=== PATIENT | female | born 1960 | race Caucasian/White ===

== ENCOUNTER 2021-03-03 12:25 | Observation (INO) | payer OTHER, SELFPAY ==
[2021-03-03] VITALS (11 sets, daily range): BP systolic 155–232; BP diastolic 74–101; PULSE 53–58; RESP 14–24; TEMP 36.4–36.9; O2SAT 97–99; BMI 36.8
[2021-03-03] MEDS: SODIUM CHLORIDE 0.9% 1,000 ML 1000 ML IV ×2 (12:57→15:00)
[2021-03-03] MEDS: ONDANSETRON 4 MG/2 ML INJ IV (12:57)
[2021-03-03 13:00] LABS: Add Manual Diff / Slide Review NO; Basophils Absolute Auto 100 /uL (0-100); Eosinophils Absolute Auto 0 /uL (0-450); Eosinophils Percent Auto 0.1 % (2-4); Hematocrit 40.9 % (36-46); Hemoglobin 13.6 g/dL (12.0-16.0); Lymphocytes Absolute Auto 1600 /uL (1100-4500); Lymphocytes Percent Auto 13.3 % (25-40); Mean Corpuscular HGB Conc 33.3 % (30-36); Mean Corpuscular Hemoglobin 29.6 PG (26-34); Mean Corpuscular Volume 88.8 fL (80-100); Monocytes Absolute Auto 700 /uL (0-900); Neutrophils Absolute Auto 9400 /uL (1500-7000); Neutrophils Percent Auto 79.6 % (50-75); Platelet Count 289 X10^3/uL (150-400); Red Cell Distribution Width 12.5 % (11.6-14.8); White Blood Cell Count 11.8 X10^3/uL (4.5-11.0)
[2021-03-03 13:07] LABS: Alanine Aminotransferase 346 IU/L (<35); Albumin 4.2 g/dL (3.5-5.0); Albumin Globulin Ratio 1.4 (1.0-2.8); Alkaline Phosphatase 149 U/L (38-126); Aspartate Aminotransferase 474 IU/L (14-36); Blood Urea Nitrogen 18 mg/dL (7-17); Calcium 9.8 mg/dL (8.4-10.2); Carbon Dioxide 28 mmol/L (22-32); Chloride 106 mmol/L (98-107); Estimated Glomerular Filt Rate > 60.0 mL/min (>60); Globulin 2.9 g/dL (1.7-4.1); Glucose 115 mg/dL (70-100); HEMOLYSIS < 15 (0-50); Lipase 68 U/L (23-300); Potassium 3.4 mmol/L (3.4-5.1); Sodium 140 mmol/L (137-145); Total Protein 7.1 g/dL (6.3-8.2)
--- NOTE | 2021-03-03 14:27 | DI.US.S_ITS ---
PROCEDURE: US ABDOMEN COMPLETE INDICATIONS: back/abd pain TECHNIQUE: Real-time scanning was performed of the abdominal and retroperitoneal organs, with image documentation. COMPARISON: None. FINDINGS: Liver: Liver is normal in size and homogeneous in echotexture. Liver measures 16.1 cm in length Gallbladder: Gallbladder sludge is present. No definite wall thickening. No pericholecystic fluid or sonographic Person sign. Biliary ducts: Distal common bile duct measures 11.6 mm, enlarged. There is intrahepatic bile duct dilatation of the ashtyn hepatis only. Pancreas: Visualized portions of the pancreas are sonographically normal. Spleen: Spleen is normal in size and homogeneous in echotexture. Kidneys: Kidneys are normal in size and echotexture. Right kidney measures 11.6 cm long; left kidney measures 12.6 cm long. No hydronephrosis or nephrolithiasis. No solid masses. There are parapelvic cysts bilaterally Aorta: Visualized aorta is normal in caliber at less than 3 cm. Iliacs: Proximal common iliac arteries are normal in caliber at less than 2.5 cm. IVC: Intrahepatic inferior vena cava is patent. Miscellaneous: No free abdominal fluid. IMPRESSION: Gallbladder sludge. No sonographically visible calculi identified. However there is mild intrahepatic and and extrahepatic bile duct dilatation. Please correlate clinically and with LFTs. If necessary, MRCP could be considered. Dictated by: Mark Baez M.D. on 03/03/2021 at 16:01 Approved by: Mark Baez M.D. on 03/03/2021 at 16:04
[2021-03-03 14:48] LABS: Creatine Kinase 72 U/L (30-135)
[2021-03-03] MEDS: KETOROLAC 30 MG/ML VIAL 15 MG IV (14:57)
[2021-03-03 15:01] LABS: Troponin I < 0.012 ng/mL (0.01-0.034)
--- NOTE | 2021-03-03 15:21 | ED_ITS ---
HPI - Abdominal Pain General Chief Complaint: Abdominal Pain Stated Complaint: [facility] Time Seen by Provider: 03/03/21 13:38 Source: patient Mode of arrival: Ambulatory Limitations: no limitations History of Present Illness HPI narrative: This is a 60-year-old female comes emergency department complaint of acute onset of epigastric pain radiating to her right side beginning this m orning. Patient states it had continued and brought her ultimately here. Patient denies any fevers or chills. Had nausea and some vomiting. No active vomiting currently. No diarrhea. She has had normal bowel movements. No black or bloody stools. She denies any chest pain or shortness of breath. No syncope. Patient has not any swelling in her extremities. Patient states she does not follow a regular primary care. She takes ibuprofen regularly but no other daily medications. She denies any cholecystectomy. She states she has had repair of a broken ankle. She smokes a half pack per day. No alcohol, no illicit. No allergies to medications. Related Data Home Medications Medication Instructions Recorded Confirmed ibuprofen 200 mg capsule 800 mg PO Q8H PRN 03/03/21 03/03/21 Allergies Allergy/AdvReac Type Severity Reaction Status Date / Time No Known Drug Allergies Allergy Verified 03/03/21 12:41 Review of Systems Review of Systems ROS Unobtainable: All systems reviewed & are unremarkable except as noted in HPI and below Patient History Social History Smoking Status: Current every day smoker Smoking Status: Current every day smoker alcohol intake frequency: holidays/special occasions only Substance Use Type: does not use Exam Narrative Exam Narrative: GENERAL: Alert and oriented x three, female in mild distress. HEENT: Head normocephalic, atraumatic, EOMI, pupils reactive, face symmetric, moist mucous membranes NECK: Supple, full range of motion CARDIOVASCULAR: Regular rate and rhythm without murmurs, rubs or gallops. RESPIRATORY: Breath sounds equal bilaterally, no wheezes rales or rhonchi. ABDOMEN: Soft, right upper quadrant tenderness, patient is more tender in the epigastric region. Normoactive bowel sounds all 4 quadrants. No guarding or rebound, rigidity, no mass, no pulsatile mass or bruit : No CVA tenderness EXTREMITIES: Normal range of motion, no clubbing or edema. Neurovascularly intact NEUROLOGICAL: Cranial nerves II through XII grossly intact. Moving all extremities SKIN: Warm, dry, no petechiae, no rashes or lesions. Initial Vital Signs Initial Vital Signs: Vital Signs Temperature 98.5 F 03/03/21 12:36 Pulse Rate 58 L 03/03/21 12:36 Respiratory Rate 14 03/03/21 12:36 Blood Pressure 232/99 H 03/03/21 12:36 Pulse Oximetry 99 03/03/21 12:36 Course Orders Ordered: ED Orders 03/03/21 12:42 EKG-12 Lead Stat 03/03/21 12:52 Complete Blood Count AUTO DIFF Stat Comprehensive Metabolic Panel Stat Hepatic (Liver) Panel Stat Lipase Stat Troponin & CK Cardiac Panel Stat 03/03/21 14:27 US abdomen complete Stat 03/03/21 15:02 COVID19 - ADMIT (LIMOUSINE DRIVER swab/PCR) Stat 03/03/21 16:09 MR abdomen wo con Stat Discontinued Medications Sodium Chloride (Normal Saline 0.9%) 1,000 mls @ 1,000 mls/hr IV BOLUS ONE Stop: 03/03/21 13:41 Last Infusion: 03/03/21 14:24 Dose: 0 mls/hr Documented by: CTR.GERSON Admin: 03/03/21 12:57 Dose: 1,000 mls/hr Documented by: KOREY Sodium Chloride (Normal Saline 0.9%) 1,000 mls @ 1,000 mls/hr IV BOLUS ONE Stop: 03/03/21 15:27 Last Infusion: 03/03/21 16:05 Dose: 0 mls/hr Documented by: CTR.GERSON Admin: 03/03/21 15:00 Dose: 1,000 mls/hr Documented by: CTR.GERSON Piperacillin Sod/Tazobactam (Sod 4.5 gm/ Sodium Chloride) 100 mls @ 200 mls/hr IV NOW ONE Stop: 03/03/21 20:03 Last Admin: 03/03/21 20:24 Dose: Not Given Documented by: MALATHI Piperacillin Sod/Tazobactam (Sod 4.5 gm/ Sodium Chloride) 100 mls @ 200 mls/hr IV NOW ONE Stop: 03/03/21 20:30 Ketorolac Tromethamine (Ketorolac 30 Mg/Ml Vial) 15 mg IV NOW ONE Stop: 03/03/21 14:28 Last Admin: 03/03/21 14:57 Dose: 15 mg Documented by: CTRJONNATHAN Lorazepam (Lorazepam 2 Mg/Ml Inj) 0.5 mg IV NOW ONE Stop: 03/03/21 18:16 Last Admin: 03/03/21 19:18 Dose: 0.25 mg Documented by: CTR.GERSON Ondansetron HCl (Ondansetron 4 Mg/2 Ml Inj) 4 mg IV NOW ONE Stop: 03/03/21 12:43 Last Admin: 03/03/21 12:57 Dose: 4 mg Documented by: KOREY Consultations Consultation #1: Dr. Arteaga, this patient is unlikely to be surgical. Reviewed labs, ultrasound and MRCP findings. Plan to cover with antibiotics, hepatitis panel and admission under Medicine. Consultation #2: ZAINAB Her, accepts for inpatient admission. Discussed surgical recommendations. Vital Signs Vital signs: Vital Signs - 8 hr 03/03/21 17:00 Pulse Rate 54 L Respiratory Rate 20 Blood Pressure 171/74 H Pulse Oximetry 98 MDM - Abdominal Pain Lab Data Result diagrams: 03/03/21 12:52 03/03/21 12:52 Labs: Lab Results 03/03/21 03/03/21 03/03/21 Range/Units 12:52 12:52 12:52 WBC 11.8 H (4.5-11.0) X10^3/uL RBC 4.60 (4.0-5.2) X10^6/uL Hgb 13.6 (12.0-16.0) g/dL Hct 40.9 (36-46) % MCV 88.8 (80-100) fL MCH 29.6 (26-34) PG MCHC 33.3 (30-36) % RDW 12.5 (11.6-14.8) % Plt Count 289 (150-400) X10^3/uL Neut % (Auto) 79.6 H (50-75) % Lymph % (Auto) 13.3 L (25-40) % Lucas % (Auto) 6.0 (3-14) % Eos % (Auto) 0.1 L (2-4) % Baso % (Auto) 1.0 (0-2) % Neut # (Auto) 9400 H (5281-2495) /uL Lymph # (Auto) 1600 (6945-4119) /uL [place] # (Auto) 700 (0-900) /uL Eos # (Auto) 0 (0-450) /uL Baso # (Auto) 100 (0-100) /uL Sodium 140 (137-145) mmol/L Potassium 3.4 (3.4-5.1) mmol/L Chloride 106 (98-107) mmol/L Carbon Dioxide 28 (22-32) mmol/L BUN 18 H (7-17) mg/dL Creatinine 0.60 (0.52-1.04) mg/dL Estimated GFR > 60.0 (>60) mL/min BUN/Creatinine Ratio 30.0 H (6-22) Glucose 115 H (70-100) mg/dL Calcium 9.8 (8.4-10.2) mg/dL Total Bilirubin 2.0 H (0.2-1.3) mg/dL Conjugated Bilirubin (0.0-0.3) md/dL Unconjugated Bilirubin (0.0-1.1) mg/dL AST 474 H (14-36) IU/L ALT 346 H (<35) IU/L Alkaline Phosphatase 149 H (38-126) U/L Total Creatine Kinase 72 (30-135) U/L CK-MB (CK-2) TNP CK-MB (CK-2) Rel Index TNP Troponin I < 0.012 (0.01-0.034) ng/mL Total Protein 7.1 (6.3-8.2) g/dL Albumin 4.2 (3.5-5.0) g/dL Globulin 2.9 (1.7-4.1) g/dL Albumin/Globulin Ratio 1.4 (1.0-2.8) Lipase 68 (23-300) U/L SARS-CoV-2 (PCR) (Negative) 03/03/21 03/03/21 Range/Units 12:52 15:02 WBC (4.5-11.0) X10^3/uL RBC (4.0-5.2) X10^6/uL Hgb (12.0-16.0) g/dL Hct (36-46) % MCV (80-100) fL MCH (26-34) PG MCHC (30-36) % RDW (11.6-14.8) % Plt Count (150-400) X10^3/uL Neut % (Auto) (50-75) % Lymph % (Auto) (25-40) % Lucas % (Auto) (3-14) % Eos % (Auto) (2-4) % Baso % (Auto) (0-2) % Neut # (Auto) (2372-3920) /uL Lymph # (Auto) (3786-1251) /uL Lucas # (Auto) (0-900) /uL Eos # (Auto) (0-450) /uL Baso # (Auto) (0-100) /uL Sodium (137-145) mmol/L Potassium (3.4-5.1) mmol/L Chloride (98-107) mmol/L Carbon Dioxide (22-32) mmol/L BUN (7-17) mg/dL Creatinine (0.52-1.04) mg/dL Estimated GFR (>60) mL/min BUN/Creatinine Ratio (6-22) Glucose (70-100) mg/dL Calcium (8.4-10.2) mg/dL Total Bilirubin 2.0 H (0.2-1.3) mg/dL Conjugated Bilirubin 0.2 (0.0-0.3) md/dL Unconjugated Bilirubin 0.7 (0.0-1.1) mg/dL AST 476 H (14-36) IU/L ALT 344 H (<35) IU/L Alkaline Phosphatase 151 H (38-126) U/L Total Creatine Kinase (30-135) U/L CK-MB (CK-2) CK-MB (CK-2) Rel Index Troponin I (0.01-0.034) ng/mL Total Protein 7.0 (6.3-8.2) g/dL Albumin 4.2 (3.5-5.0) g/dL Globulin 2.8 (1.7-4.1) g/dL Albumin/Globulin Ratio 1.5 (1.0-2.8) Lipase (23-300) U/L SARS-CoV-2 (PCR) Negative (Negative) Point of care testing: Urine Dip Bedside Urine Glucose Negative Bedside Urine Bilirubin - Negative Bedside Urine Ketone - Negative Urine Specific [place] 1.015 Bedside Urine Occult Blood - Negative Bedside Urine pH 6.5 Bedside Urine Protein - Negative Bedside Urine Urobilinogen - Negative Bedside Urine Nitrite - Negative Bedside Urine Leukocytes - Negative Esterase Imaging Data US - abdomen: Radiologist's Impression: [address] [id number] ReportSigned Patient: Lissett Clifford AMR#: [id number]: 2Acct:[id number]/Sex: 60 / FDate of Service: 03/03/21Loc: EDAccession Number: [id number] Procedure: US abdomen complete Ordering Provider: Mary France D.O. PROCEDURE: US ABDOMEN COMPLETE INDICATIONS: back/abd pain TECHNIQUE: Real-time scanning was performed of the abdominal and retroperitoneal organs, with image documentation. COMPARISON: None. FINDINGS: Liver: Liver is normal in size and homogeneous in echotexture. Liver measures 16.1 cm in length Gallbladder: Gallbladder sludge is present. No definite wall thickening. No pericholecystic fluid or sonographic Person sign. Biliary ducts: Distal common bile duct measures 11.6 mm, enlarged. There is intrahepatic bile duct dilatation of the ashtyn hepatis only. Pancreas: Visualized portions of the pancreas are sonographically normal. Spleen: Spleen is normal in size and homogeneous in echotexture. Kidneys: Kidneys are normal in size and echotexture. Right kidney measures 11.6 cm long; left kidney measures 12.6 cm long. No hydronephrosis or nephrolithiasis. No solid masses. There are parapelvic cysts bilaterally Aorta: Visualized aorta is normal in caliber at less than 3 cm. Iliacs: Proximal common iliac arteries are normal in caliber at less than 2.5 cm. IVC: Intrahepatic inferior vena cava is patent. Miscellaneous: No free abdominal fluid. IMPRESSION: Gallbladder sludge. No sonographically visible calculi identified. However there is mild intrahepatic and and extrahepatic bile duct dilatation. Please correlate clinically and with LFTs. If necessary, MRCP could be considered. Dictated by: Mark Baez M.D. on 03/03/2021 at 16:01 Approved by: Mark Baez M.D. on 03/03/2021 at 16:04 ECG Data Interpretation: Sinus bradycardia rate of 51 IN 176 QRS of 92 and QTC 401. Nonspecific change. No prior. MDM Narrative Medical decision making narrative: This is a 60-year-old female comes in with epigastric/right upper quadrant pain. Patient has mild to moderate tenderness after pain medication. Ultrasound does show sludge, there is no definite wall thickening, pericholecystic fluid or sonographic Person sign. Patient's majority of her pain is epigastric on exam. She has elevated bilirubin, LFTs within normal lipase. She has a mildly elevated white count. Negative troponin. EKG shows nonspecific change. Patient does not have a prior for comparison. Patient and pain was improved after pain medication. Patient's ultrasound findings did show what appears to be an enlarged common bile duct and were able to obtain MRCP. Patient did need Ativan for some claustrophobia. MRCP does not show obvious stone. Mild gallbladder wall thickening, cholelithiasis. No obstructing mass. Nonspecific periportal edema within the liver. Spoke with Dr. Arteaga with general surgery who recommends covering with IV antibiotics, admission to Medicine, hepatitis panel is ordered. At this time does not feel surgical and does not plan to take to OR currently. Discharge Plan Departure Patient Disposition: Admitted As Inpatient Clinical Impression: Hepatitis, Acalculous cholecystitis Admit Date/Time: 03/03/21 20:12 Admit Provider: Yudith Her
[2021-03-03 16:00] LABS: COVID19 - ADMIT (NP swab/PCR) Negative (Negative)
--- NOTE | 2021-03-03 16:09 | DI.MRI.S_ITS ---
PROCEDURE: MR ABDOMEN WO CON INDICATIONS: elevated lft's cbd dilated. epigastric pain. TECHNIQUE: Coronal HASTE through the abdomen, axial 2-D FLASH in- and [id number], and breath-hold T2 FSE with fat saturation through the biliary system and pancreas. Oblique coronal and axial thin-slice HASTE, radial thick-slab HASTE centered on the extrahepatic bile ducts. COMPARISON: , , US ABDOMEN COMPLETE, 03/03/2021, 14:24. FINDINGS: Image quality: There is motion artifact limiting evaluation. Pancreas and biliary system: The gallbladder is distended with wall thickening. No gallstones or pericholecystic fluid. The common hepatic duct is slightly dilated but the common bile duct is normal in caliber distally. No definite filling defects to suggest choledocholithiasis. No discrete obstructing mass visualized. Pancreatic duct is nondistended. Common bile duct Pancreas is normal in morphology, without peripancreatic edema or fluid collections. Other solid organs: Noncontrast evaluation of the liver demonstrates no discrete mass. There is mild periportal edema in the liver. Spleen is normal in size. No adrenal nodules. Kidneys demonstrate no hydronephrosis. There are multiple bilateral parapelvic renal cysts. Nodes and vessels: No retroperitoneal or mesenteric adenopathy by size criteria. Aorta and inferior vena cava are normal in size. Bowel and peritoneum: Visualized bowel loops are normal in caliber. No free fluid. Lung bases: No basal pleural effusions. Heart size is normal. Bones and soft tissues: No ventral hernias. Bone marrow is of normal overall signal. IMPRESSION: 1. Mild gallbladder wall thickening without evidence of cholelithiasis or pericholecystic fluid. The findings are nonspecific in the differential is broad but includes possible acalculous cholecystitis. Recommend correlation clinically. 2. Mild dilatation of the common hepatic duct without abnormal dilatation of the common bile duct. No discrete stones identified to suggest choledocholithiasis. No definite obstructing mass visualized in the absence of intravenous contrast. 3. Mild nonspecific periportal edema within the liver. Dictated by: Nathanael Jc M.D. on 03/03/2021 at 19:34 Approved by: Nathanael Jc M.D. on 03/03/2021 at 19:40
[2021-03-03] MEDS: LORazepam 2 MG/ML INJ 0.5 MG IV (19:18)
--- NOTE | 2021-03-03 20:32 | P.HP_ITS ---
History of Present Illness History of Present Illness Date Patient Seen: 03/03/21 Time Patient Seen: 20:32 Chief complaint: sent by [facility], omayra vannbaltazar since midnight Narrative: Patient is a 60-year-old female Lissett Clifford who presented to the ED with a chief complaint of acute onset of epigastric pain radiating to her right side beginning this morning. Patient states it had continued and brought her ultimately here. Patient denies any fevers or chills. Had nausea and some vomiting. No active vomiting currently. No diarrhea. She has had normal bowel movements. No black or bloody stools. She denies any chest pain or shortness of breath. No syncope. Patient has not any swelling in her extremities. Patient states she does not follow a regular primary care. She takes ibuprofen 800mg daily but no other daily medications. Patient denies any medical history. She denies any cholecystectomy. She smokes a half pack per day. No alcohol, no illicit. No allergies to medications. Upon admit patient was hypertensive with a blood pressure 171/74, and bradycardic with a heart rate of 54. Patient had a mild increase in her WBCs at 11.8 with a slight left shift neutrophils 9400. Renal enzymes were all grossly within normal limits. Patient's liver enzymes were all elevated with a total bili 2.0, GGT 129, AST 476, ALT 344, alk-phos 151. Patient's PT INR was not prolonged signifying she was not in acute liver failure. On patient's physical exam she had no tenderness over the upper right quadrant, but positive corneal icterus was appreciated. Patient was negative for ascites. Patient's cholesterol was fairly unremarkable. Amylase was elevated at 126 while lipase was normal at 68. Patient's acetaminophen level was negative. Hepatitis panel pending. Patient denied a history of hepatitis, recent illness, injury, trauma, or other offending substance. Patient's abdominal ultrasound showed gallbladder sludge, no sonographically visible calculi identified. However there is mild intrahepatic and and extrahepatic bile duct dilatation. MRCP does not show obvious stone. Mild gallbladder wall thickening, cholelithiasis. No obs tructing mass. Nonspecific periportal edema within the liver. ED spoke with Dr. Arteaga (general surgery) who recommends covering with IV antibiotics, admission to Medicine, hepatitis panel. And at this time does not feel surgical and does not plan to take to OR currently. Patient History Family & Social History Safety & Behavioral: Feels Safe in Current Yes Environment Been Physically Hurt or No Threatened By a Person Tobacco & Substance use: Smoking Status Current every day smoker alcohol intake frequency holiday/special occasion Substance Use Type does not use Meds Home Medications and Allergies Home Medications Medication Instructions Recorded Confirmed Type ibuprofen 200 mg capsule 800 mg PO Q8H PRN 03/03/21 03/03/21 History Allergies Allergy/AdvReac Type Severity Reaction Status Date / Time No Known Drug Allergies Allergy Verified 03/03/21 12:41 Exam Vital Signs (past 8 hours): - 03/03/21 12:36 03/03/21 16:20 Temperature 98.5 F Pulse Rate 58 L 54 L Respiratory Rate 14 20 Blood Pressure 232/99 H 171/74 H Pulse Oximetry 99 98 Oxygen Delivery Method Room Air Objective Labs Result Diagrams: 03/03/21 12:52 03/03/21 12:52 Labs: Laboratory Results - last 24 hr 03/03/21 03/03/21 03/03/21 12:52 12:52 12:52 WBC 11.8 H RBC 4.60 Hgb 13.6 Hct 40.9 MCV 88.8 MCH 29.6 MCHC 33.3 RDW 12.5 Plt Count 289 Neut % (Auto) 79.6 H Lymph % (Auto) 13.3 L [place] % (Auto) 6.0 Eos % (Auto) 0.1 L Baso % (Auto) 1.0 Neut # (Auto) 9400 H Lymph # (Auto) 1600 [place] # (Auto) 700 Eos # (Auto) 0 Baso # (Auto) 100 Sodium 140 Potassium 3.4 Chloride 106 Carbon Dioxide 28 BUN 18 H Creatinine 0.60 Estimated GFR > 60.0 BUN/Creatinine Ratio 30.0 H Glucose 115 H Calcium 9.8 Total Bilirubin 2.0 H AST 474 H ALT 346 H Alkaline Phosphatase 149 H Total Creatine Kinase 72 CK-MB (CK-2) TNP CK-MB (CK-2) Rel Index TNP Troponin I < 0.012 Total Protein 7.1 Albumin 4.2 Globulin 2.9 Albumin/Globulin Ratio 1.4 Lipase 68 SARS-CoV-2 (PCR) 03/03/21 15:02 WBC RBC Hgb Hct MCV MCH MCHC RDW Plt Count Neut % (Auto) Lymph % (Auto) [place] % (Auto) Eos % (Auto) Baso % (Auto) Neut # (Auto) Lymph # (Auto) [place] # (Auto) Eos # (Auto) Baso # (Auto) Sodium Potassium Chloride Carbon Dioxide BUN Creatinine Estimated GFR BUN/Creatinine Ratio Glucose Calcium Total Bilirubin AST ALT Alkaline Phosphatase Total Creatine Kinase CK-MB (CK-2) CK-MB (CK-2) Rel Index Troponin I Total Protein Albumin Globulin Albumin/Globulin Ratio Lipase SARS-CoV-2 (PCR) Negative Assessment & Plan Assessment & Plan narrative: 1.Acalculous cholecystitis, acute, present on admission - WBCs at 11.8 with a slight left shift neutrophils 9400. total bili 2.0, GGT 129, AST 476, ALT 344, alk-phos 151. Positive corneal icterus was appreciated. Amylase was elevated at 126 while lipase was normal at 68. -Patient's abdominal ultrasound showed gallbladder sludge, no sonographically visible calculi identified. However there is mild intrahepatic and and extrahepatic bile duct dilatation. MRCP does not show obvious stone. Mild gallbladder wall thickening, cholelithiasis. No obstructing mass. Nonsp ecific periportal edema within the liver. -patient did have an elevated D-dimer 450, ordered CT of chest and abdomen to rule out PE- results pending. -patient education regarding the large intake of 800 mg ibuprofen on a daily if not greater bases. I feel that this is likely contributing to the patient's elevated Liver Enzymes. -cholesterol was fairly unremarkable. -acetaminophen level was negative. - Hepatitis panel pending - PT/INR was not prolonged signifying she was not in acute liver failure. -Rule out: cholangitis, cholestasis (extra hepatic obstruction or intrahepa tic biliary obstruction), biliary colic, accalcu -keep NPO except for meds start on IV hydration, monitor electrolytes -supportive care pain control Toradol, morphine, and antiemetics as needed. -because diagnosis is slightly inconclusive I recommend a HIDA scan. -empiric IV antibiotics Zosyn given in ED, will continue with Zosyn 3.375 q.6h continue antibiotics until gallbladder is removed or cholecystitis is resolved. -surgery consulted: Dr. Arteaga -The symptoms do not improve with supportive care and risk of cholecystectomy outweighs the potential benefits, then gallbladder drainage percutaneous cholecystotomy is indicated. -consider MRCP or EUS 1st. 2. Elevated blood pressure, acute, present on admission -I suspect this has been on diagnosed hypertension. -started 20 mg lisinopril q.day 3. Obesity as evidence by BMI 36.9, acute on chronic, present on admission -consideration will be given dietary counseling Code status: Full code Surrogate decision maker:Partner Hari ZAZUETA PCR: Negative DVT/VTE prophylaxis: Lovenox 40 mg and SCDs Expected length of stay: Less than 2 midnights Scores GCS Emily coma scale eye opening: Spontaneous [place] coma scale verbal response: Orientated Emily coma scale motor response: Obey commands Emily coma scale total score: 15 SOFA PaO2/FIO2: >=400 mmHg Platelets: >= 150 Bilirubin: 2.0-5.9 mg/dL Hypotension: MAP >= 70 mmHg Emily Coma Scale: 15 Renal: < 1.2 mg/dL SOFA Score: 2 Wells' Criteria for PE Clinical signs and symptoms of DVT: No PE is #1 Dx or equally likely: No Heart rate > 100: No Immobilization at least 3 days or surg in previous 4 weeks: No History of PE or DVT: No Hemoptysis: No Malignancy w/Treatment within 6 months or palliative: No Wells' PE Score total: 0 Quality MIPS - Admit I confirm the patient?s Advance Care Plan is present, Code status is documented, Surrogate decision maker is in patient?s record [If Yes, STOP here]: Yes
[2021-03-03 20:35] LABS: Alanine Aminotransferase 344 IU/L (<35); Albumin 4.2 g/dL (3.5-5.0); Albumin Globulin Ratio 1.5 (1.0-2.8); Alkaline Phosphatase 151 U/L (38-126); Aspartate Aminotransferase 476 IU/L (14-36); Bilirubin Conjugated 0.2 md/dL (0.0-0.3); Bilirubin Unconjugated 0.7 mg/dL (0.0-1.1); Globulin 2.8 g/dL (1.7-4.1); HEMOLYSIS < 15 (0-50)
[2021-03-03 21:11] LABS: Cholesterol 198 mg/dL (140-199); HDL Cholesterol 67 mg/dL (40-60); LDL Cholesterol Calculated 110 mg/dL (<100); Triglycerides 105 mg/dL (35-150)
[2021-03-03 21:12] LABS: Magnesium 2.1 mg/dL (1.6-2.3)
[2021-03-03 21:23] LABS: D Dimer 450 ng/mL (<230)
[2021-03-03 21:24] LABS: Amylase 126 U/L (30-110); Gamma Glutamyl Transpeptidase 129 U/L (12-43)
[2021-03-03] MEDS: SODIUM CHLORIDE 0.9% 1,000 ML 100 ML IV (21:43)
[2021-03-03] MEDS: PIPERACILLIN/TAZO 4.5 GM in SODIUM CHLORIDE 0.9% 100 ML 200 ML IV (21:47)
--- NOTE | 2021-03-03 23:33 | DI.CT.S_ITS ---
PROCEDURE: CT ANGIO CHEST PE PROTOCOL INDICATIONS: R/O PE TECHNIQUE: After the administration of intravenous contrast, 2 mm thick sections acquired from the pulmonary apices to the posterior costophrenic angles. 3-dimensional maximum intensity projection (MIP) coronal and sagittal reformats were then acquired through the thorax. For radiation dose reduction, the following was used: automated exposure control, adjustment of mA and/or kV according to patient size. COMPARISON: None. FINDINGS: Image quality: Excellent. Pulmonary arteries: Pulmonary arteries are normal in size, and demonstrate no intraluminal filling defects to suggest central pulmonary embolism. Lungs and pleura: 3 mm pulmonary nodule, right upper lobe, image 64/5. 2 mm pulmonary nodule, right upper lobe, image 79/5. Lungs are clear. No pleural effusions or pneumothorax. Central and peripheral airways are patent. Mediastinum: Heart size is normal, without pericardial effusion. No mediastinal or hilar adenopathy. Thoracic aorta is normal in caliber and enhancement. Esophagus is normal in caliber, without hiatal hernia. Bones and chest wall: No suspicious bony lesions. Ribs and thoracic spine appear intact throughout. Thyroid gland is unremarkable as visualized. No axillary or supraclavicular adenopathy. Abdomen: Visualized upper abdominal solid organs appear normal in the early arterial phase of enhancement. IMPRESSION: 1. No evidence acute pulmonary emboli. 2. No evidence acute pulmonary process. 3. There are 2 small right upper lobe pulmonary nodules, the larger of which measures 3 mm. Please see chart below for follow-up recommendations. Fleischner Society criteria for SOLID lung nodule followup. Nodule size (mm)Low-risk patientHigh-risk patient<6 (single or multiple)No routine followup.Optional CT at 12 months. 6-8 (single or multiple)CT at 6-12 months, then optional CT at 18-24 mo.CT at 6-12 months, then CT at 18-24 months. >8 (single)CT at 3 months, PET-CT, or biopsy. Same as for low-risk pts. >8 (multiple)CT at 3-6 months, then optional CT at 18-24 mo.CT at 3-6 months, then CT at 18-24 months. Fleischner Society criteria for SUB-SOLID lung nodule followup. Solitary pure ground-glass nodules<6 mm (ground glass or part solid)No followup needed. 6 mm or larger (ground glass)CT at 6-12 months to confirm persistence, then CT every 2 years until 5 years.6 mm or larger (part solid)CT at 3-6 months to confirm persistence, then annual CT until 5 years if unchanged and solid component remains <6 mm. Multiple sub-solid nodules<6 mmCT at 3-6 months, then CT consider at 2 & 4 years for high risk patients. [address] at 3-6 months. Subsequent management based on most suspicious lesions. Recommendations do not apply to lung cancer screening, patients with immunosuppression, or patients with known primary cancer. Dictated by: Osbaldo Coleman M.D. on 03/04/2021 at 9:30 Approved by: Osbaldo Coleman M.D. on 03/04/2021 at 9:35
--- NOTE | 2021-03-03 23:34 | DI.CT.S_ITS ---
PROCEDURE: CT ABDOMEN PELVIS W CON INDICATIONS: R/O PE TECHNIQUE: After the administration of intravenous contrast, axial sections acquired from the lung bases to the pubic symphysis. Coronal and sagittal reformats were performed. For radiation dose reduction, the following was used: automated exposure control, adjustment of mA and/or kV according to patient size. COMPARISON: [facility], MR, MR ABDOMEN WO CON, 03/03/2021, 18:05. FINDINGS: Image quality: Excellent. Lung bases: Unremarkable. Heart: No significant findings. ABDOMEN: Liver: Unremarkable. Gallbladder: Mild wall thickening the possible mild wall edema. Minimal haziness in the adjacent fat Biliary ducts: Unremarkable. Pancreas: Unremarkable. Spleen: Unremarkable. Adrenal Glands: Unremarkable. Kidneys and Ureters: Note is made of the presence of a possible moderate or severe left renal artery stenosis. Reference image 35/12. A hilar left renal calcification is likely vascular in nature. There are bilateral peripelvic renal cysts. Stomach and Bowel: Stomach, small bowel loops, and colon are nondilated without wall thickening.. Sigmoid diverticulosis without evidence of diverticulitis. Peritoneum: No abnormal intraperitoneal fluid. No free air. Ventral Wall: No hernias. Abdominal Nodes: No retroperitoneal or mesenteric adenopathy by size criteria. Vessels: Aorta and inferior vena cava are normal in size. PELVIS: Pelvic Organs: Unremarkable. Bladder: Unremarkable. Pelvic Nodes: No enlarged lymph nodes. Miscellaneous: No hernias are seen. Bones: There are bilateral L5 pars defects with mild grade 1 anterolisthesis of L5 on S1 resulting in bilateral L5-S1 foraminal narrowing and L5 nerve root impingement. IMPRESSION: 1. Mild distention of the gallbladder with mild gallbladder wall thickening and possible gallbladder wall edema. There is minimal haziness in the adjacent fat. Suggest clinical correlation for pain symptomatology. 2. Moderate or severe left renal artery stenosis. 3. Bilateral L5 pars defects with grade 1 anterolisthesis of L5 on S1 and severe bilateral foraminal narrowing with bilateral L5 nerve root impingement. Comment: Final report is concordant with preliminary interpretation provided by [facility]. Dictated by: Osbaldo Coleman M.D. on 03/04/2021 at 9:36 Approved by: Osbaldo Coleman M.D. on 03/04/2021 at 9:46
[2021-03-03 23:53] LABS: Acetaminophen < 10 ug/mL (10-30)
[2021-03-04] VITALS (7 sets, daily range): BP systolic 149–180; BP diastolic 68–94; PULSE 49–60; RESP 16; TEMP 36.4–37.2; O2SAT 96–100
[2021-03-04] MEDS: lisinopriL 20 MG TABLET PO ×2 (00:01→09:47)
[2021-03-04 00:19] LABS: INR 1.1 (0.9-1.3); Prothrombin Time 11.8 SECONDS (10.1-12.7)
[2021-03-04 00:22] LABS: Lactate (Lactic Acid) 1.4 mmol/L (0.7-2.1)
[2021-03-04 05:46] LABS: Add Manual Diff / Slide Review NO; Basophils Absolute Auto 100 /uL (0-100); Basophils Percent Auto 0.8 % (0-2); Eosinophils Absolute Auto 200 /uL (0-450); Eosinophils Percent Auto 2.4 % (2-4); Hematocrit 37.8 % (36-46); Hemoglobin 12.5 g/dL (12.0-16.0); Lymphocytes Absolute Auto 3200 /uL (1100-4500); Mean Corpuscular Hemoglobin 29.8 PG (26-34); Mean Corpuscular Volume 90.1 fL (80-100); Monocytes Absolute Auto 700 /uL (0-900); Monocytes Percent Auto 6.9 % (3-14); Neutrophils Absolute Auto 5600 /uL (1500-7000); Neutrophils Percent Auto 56.9 % (50-75); Platelet Count 266 X10^3/uL (150-400); Red Blood Cell Count 4.19 X10^6/uL (4.0-5.2); White Blood Cell Count 9.8 X10^3/uL (4.5-11.0)
[2021-03-04 05:51] LABS: Prothrombin Time 11.1 SECONDS (10.1-12.7)
[2021-03-04 05:55] LABS: Blood Urea Nitrogen 18 mg/dL (7-17); Calcium 9.2 mg/dL (8.4-10.2); Carbon Dioxide 28 mmol/L (22-32); Chloride 108 mmol/L (98-107); Estimated Glomerular Filt Rate > 60.0 mL/min (>60); Glucose 109 mg/dL (70-100); HEMOLYSIS < 15 (0-50); Potassium 3.4 mmol/L (3.4-5.1); Sodium 140 mmol/L (137-145)
[2021-03-04] MEDS: PIPERACILLIN/TAZO 3.375 GM in SODIUM CHLORIDE 0.9% 100 ML 25 ML IV (06:16)
--- NOTE | 2021-03-04 08:41 | P.CONS_ITS ---
History of Present Illness Consult details Chief [facility] Reason for consult: Abnormal LFTs Narrative: 60-year-old woman admitted to the hospital for abdominal pain and transaminitis. She developed sharp epigastric pain associated with nausea ye sterday presented to the emergency room. No prior similar episodes. At admission WBC 12, total bilirubin 2.0, AST 480, ALT 340, Alk Phos 150. Imaging included Abdominal US, MRCP, CT A/P. The result of imaging demonstrates no cholelithiasis, mild gallbladder wall thickening, no pericholecystic fluid, mild dilation of the intra hepatic ducts and CBD no stones within the ducts. This morning she has near resolution of her abdominal pain. Meds Home Medications and Allergies Home Medications Medication Instructions Recorded Confirmed Type ibuprofen 200 mg capsule 800 mg PO Q8H PRN 03/03/21 03/03/21 History Allergies Allergy/AdvReac Type Severity Reaction Status Date / Time No Known Drug Allergies Allergy Verified 03/03/21 12:41 Review of Systems Review of Systems ROS: Yes All systems reviewed with the patient and are negative except as otherwise documented Exam Vital Signs (past 8 hours): - 03/04/21 02:00 03/04/21 04:00 03/04/21 06:00 Temperature 98.4 F Pulse Rate 52 L Respiratory Rate 16 Blood Pressure 149/68 H Pulse Oximetry 96 100 100 Oxygen Delivery Method Room Air Oxygen Flow Rate 0 Narrative Exam Narrative: GENERAL-well developed adult female, no acute distress HEENT-no scleral icterus, hearing intact NECK-no JVD, trachea midline CVS- regular rate, no peripheral edema RESP-unlabored respiratory effort, no audible wheezing GI-soft, no right upper quadrant tenderness, very mild epigastric pain MSK-no cyanosis or clubbing, extremities without deformity SKIN-warm, dry NEURO-alert and oriented, no focal deficits PYSCH-Appropriate mood and affect Objective Labs Result Diagrams: 03/04/21 05:20 03/04/21 05:20 Labs: Laboratory Results - last 24 hr 03/03/21 03/03/21 03/03/21 12:52 12:52 12:52 WBC 11.8 H RBC 4.60 Hgb 13.6 Hct 40.9 MCV 88.8 MCH 29.6 MCHC 33.3 RDW 12.5 Plt Count 289 Neut % (Auto) 79.6 H Lymph % (Auto) 13.3 L Sebastian % (Auto) 6.0 Eos % (Auto) 0.1 L Baso % (Auto) 1.0 Neut # (Auto) 9400 H Lymph # (Auto) 1600 Sebastian # (Auto) 700 Eos # (Auto) 0 Baso # (Auto) 100 PT INR D-Dimer Sodium 140 Potassium 3.4 Chloride 106 Carbon Dioxide 28 BUN 18 H Creatinine 0.60 Estimated GFR > 60.0 BUN/Creatinine Ratio 30.0 H Glucose 115 H Lactate Calcium 9.8 Magnesium Total Bilirubin 2.0 H Conjugated Bilirubin Unconjugated Bilirubin GGT AST 474 H ALT 346 H Alkaline Phosphatase 149 H Total Creatine Kinase 72 CK-MB (CK-2) TNP CK-MB (CK-2) Rel Index TNP Troponin I < 0.012 Total Protein 7.1 Albumin 4.2 Globulin 2.9 Albumin/Globulin Ratio 1.4 Triglycerides Cholesterol LDL Cholesterol, Calc HDL Cholesterol Amylase Lipase 68 Acetaminophen SARS-CoV-2 (PCR) 03/03/21 03/03/21 03/03/21 12:52 12:52 15:02 WBC RBC Hgb Hct MCV MCH MCHC RDW Plt Count Neut % (Auto) Lymph % (Auto) Sebastian % (Auto) Eos % (Auto) Baso % (Auto) Neut # (Auto) Lymph # (Auto) Sebastian # (Auto) Eos # (Auto) Baso # (Auto) PT INR D-Dimer Sodium Potassium Chloride Carbon Dioxide BUN Creatinine Estimated GFR BUN/Creatinine Ratio Glucose Lactate Calcium Magnesium Total Bilirubin 2.0 H Conjugated Bilirubin 0.2 Unconjugated Bilirubin 0.7 GGT AST 476 H ALT 344 H Alkaline Phosphatase 151 H Total Creatine Kinase CK-MB (CK-2) CK-MB (CK-2) Rel Index Troponin I Total Protein 7.0 Albumin 4.2 Globulin 2.8 Albumin/Globulin Ratio 1.5 Triglycerides Cholesterol LDL Cholesterol, Calc HDL Cholesterol Amylase Lipase Acetaminophen < 10 L SARS-CoV-2 (PCR) Negative 03/03/21 03/03/21 03/03/21 19:52 19:52 19:52 WBC RBC Hgb Hct MCV MCH MCHC RDW Plt Count Neut % (Auto) Lymph % (Auto) Sebastian % (Auto) Eos % (Auto) Baso % (Auto) Neut # (Auto) Lymph # (Auto) Sebastian # (Auto) Eos # (Auto) Baso # (Auto) PT INR D-Dimer Sodium Potassium Chloride Carbon Dioxide BUN Creatinine Estimated GFR BUN/Creatinine Ratio Glucose Lactate Calcium Magnesium 2.1 Total Bilirubin Conjugated Bilirubin Unconjugated Bilirubin GGT 129 H AST ALT Alkaline Phosphatase Total Creatine Kinase CK-MB (CK-2) CK-MB (CK-2) Rel Index Troponin I Total Protein Albumin Globulin Albumin/Globulin Ratio Triglycerides 105 Cholesterol 198 LDL Cholesterol, Calc 110 H HDL Cholesterol 67 H Amylase 126 H Lipase Acetaminophen SARS-CoV-2 (PCR) 03/03/21 03/03/21 03/03/21 21:06 23:55 23:55 WBC RBC Hgb Hct MCV MCH MCHC RDW Plt Count Neut % (Auto) Lymph % (Auto) Sebastian % (Auto) Eos % (Auto) Baso % (Auto) Neut # (Auto) Lymph # (Auto) Sebastian # (Auto) Eos # (Auto) Baso # (Auto) PT 11.8 INR 1.1 D-Dimer 450 H Sodium Potassium Chloride Carbon Dioxide BUN Creatinine Estimated GFR BUN/Creatinine Ratio Glucose Lactate 1.4 Calcium Magnesium Total Bilirubin Conjugated Bilirubin Unconjugated Bilirubin GGT AST ALT Alkaline Phosphatase Total Creatine Kinase CK-MB (CK-2) CK-MB (CK-2) Rel Index Troponin I Total Protein Albumin Globulin Albumin/Globulin Ratio Triglycerides Cholesterol LDL Cholesterol, Calc HDL Cholesterol Amylase Lipase Acetaminophen SARS-CoV-2 (PCR) 03/04/21 03/04/21 03/04/21 05:20 05:20 05:20 WBC 9.8 RBC 4.19 Hgb 12.5 Hct 37.8 MCV 90.1 MCH 29.8 MCHC 33.0 RDW 13.0 Plt Count 266 Neut % (Auto) 56.9 D Lymph % (Auto) 33.0 Sebastian % (Auto) 6.9 Eos % (Auto) 2.4 Baso % (Auto) 0.8 Neut # (Auto) 5600 Lymph # (Auto) 3200 Sebastian # (Auto) 700 Eos # (Auto) 200 Baso # (Auto) 100 PT 11.1 INR 1.0 D-Dimer Sodium 140 Potassium 3.4 Chloride 108 H Carbon Dioxide 28 BUN 18 H Creatinine 0.72 Estimated GFR > 60.0 BUN/Creatinine Ratio 25.0 H Glucose 109 H Lactate Calcium 9.2 Magnesium Total Bilirubin Conjugated Bilirubin Unconjugated Bilirubin GGT AST ALT Alkaline Phosphatase Total Creatine Kinase CK-MB (CK-2) CK-MB (CK-2) Rel Index Troponin I Total Protein Albumin Globulin Albumin/Globulin Ratio Triglycerides Cholesterol LDL Cholesterol, Calc HDL Cholesterol Amylase Lipase Acetaminophen SARS-CoV-2 (PCR) Assessment & Plan Assessment and plan (1) Pain in the abdomen: Qualifiers: Abdominal location: epigastric Qualified Code(s): R10.13 - Epigastric pain Status: Acute Assessment & Plan narrative: 60-year-old woman admitted to the hospital for acute abdominal pain and transaminitis. Consulted regarding possibility of acute cholecystitis. Do not suspect that she has acute cholecystitis, and this is rather hepatitis. Abdominal ultrasound, MRCP and CT abdomen pelvis were reviewed and demonstrates very mild wall thickening no pericholecystic fluid and no cholelithiasis. Abdominal pain is nearly resolved at this point, WBC 10 afebrile -Repeat LFTs this AM, trend -Agree with Hepatitis workup pending -Call with questions
[2021-03-04 09:10] LABS: Alanine Aminotransferase 289 IU/L (<35); Albumin 3.7 g/dL (3.5-5.0); Albumin Globulin Ratio 1.4 (1.0-2.8); Alkaline Phosphatase 135 U/L (38-126); Aspartate Aminotransferase 199 IU/L (14-36); BUN Creatinine Ratio 23.9 (6-22); Bilirubin Total 0.8 mg/dL (0.2-1.3); Blood Urea Nitrogen 17 mg/dL (7-17); Calcium 9.5 mg/dL (8.4-10.2); Carbon Dioxide 28 mmol/L (22-32); Chloride 109 mmol/L (98-107); Estimated Glomerular Filt Rate > 60.0 mL/min (>60); Globulin 2.7 g/dL (1.7-4.1); Glucose 109 mg/dL (70-100); HEMOLYSIS < 15 (0-50); Potassium 3.7 mmol/L (3.4-5.1); Sodium 141 mmol/L (137-145); Total Protein 6.4 g/dL (6.3-8.2)
[2021-03-04] MEDS: PANTOPRAZOLE 40 MG VIAL IV (09:46)
[2021-03-04] MEDS: ACETAMINOPHEN 325 MG TABLET 650 MG PO (09:47)
[2021-03-04] MEDS: ENOXAPARIN 40 MG/0.4 ML SYRINGE SUBCUT (09:47)
--- NOTE | 2021-03-04 13:26 | PC.NURSE ---
Discharge: Pt feels ready to d/c home. Pt understands she needs to find a pcp to care for her with her bp and other issues. She reports she will do so. Spouse present at time of teaching. Reviewed d/c packet. Rx was esent to pharmacy and will be available there. Questions answered. Pt d/c home via auto w/spouse.
--- NOTE | 2021-03-04 17:49 | PM.DS.1 ---
History of Present Illness History of Present Illness Chief [facility] Narrative: 60-year-old woman admitted to the hospital for abdominal pain and transaminitis. She developed sharp epigastric pain associated with nausea yesterday presented to the emergency room. No prior similar episodes. At admission WBC 12, total bilirubin 2.0, AST 480, ALT 340, Alk Phos 150. Imaging included Abdominal US, MRCP, CT A/P. The result of imaging demonstrates no cholelithiasis, mild gallbladder wall thickening, no pericholecystic fluid, mild dilation of the intra hepatic ducts and CBD no stones within the ducts. Discharge Providers Provider Date of admission: 03/03/21 20:12 Discharge Date: 03/04/21 Primary care physician: Doctor Samir MD Consults: 03/03/21 20:44 Consult to Physician Routine Comment: Consulting Provider: Lorenzo Arteaga Reason for consultation: Liver/common bile duct dilation/leukocytosis and elevated liver enzymes Has provider been notified: Yes Discharge provider: Juan Miguel Jiménez MD Summary Hospital Course Discharge Diagnosis: 1. Acute hepatitis, NOS 2. Hypertension Patient presented with acute epigastric pain. She had extensive workup including abdominal imaging with ultrasound, MRCP, CT. There was mild gallbladder wall thickening without stone, negative Person sign. Dr. Arteaga consulted for surgery and did not feel that she had cholecystitis or a surgical abdomen. She received IV fluids and antibiotics overnight. She had significant elevation in LFTs with total bilirubin 2.0 (conjugated 0.2), AST 476, ALT 344, alkaline phosphatase 151 improving to total bilirubin 0.8, AST 199, ALT 289, alkaline phosphatase 135 the following day. Following day her abdominal pain had completely resolved and she is tolerating a regular diet. Etiology of acute pain remains unclear but with significant elevation of LFTs diagnosis of acute hepatitis was entertained. Serologies for hepatitis-A, B and C are pending at time of discharge. Additionally she had persistent elevated blood pressures during her hospital course with diagnosis of likely chronic hypertension. She was started on losartan for BP control and will need to establish with PCP for follow-up. She is encouraged to quit smoking. She does not consume significant alcohol. Status at Discharge Cognitive/behavioral status at discharge: oriented Functional status at discharge: independent ambulation Overall status at discharge: patient is back to baseline Time Spent with Patient Time spent: Greater than 30 minutes Exam Vital Signs (past 8 hours): - 03/04/21 09:58 Pulse Rate 52 L Respiratory Rate 16 Pulse Oximetry 100 Oxygen Delivery Method Room Air Oxygen Flow Rate 0 Objective Labs Result Diagrams: 03/04/21 05:20 03/04/21 08:50 Labs: Laboratory Results - last 24 hr 03/03/21 03/03/21 03/03/21 12:52 12:52 19:52 WBC RBC Hgb Hct MCV MCH MCHC RDW Plt Count Neut % (Auto) Lymph % (Auto) Wilcox % (Auto) Eos % (Auto) Baso % (Auto) Neut # (Auto) Lymph # (Auto) Wilcox # (Auto) Eos # (Auto) Baso # (Auto) PT INR D-Dimer Sodium Potassium Chloride Carbon Dioxide BUN Creatinine Estimated GFR BUN/Creatinine Ratio Glucose Lactate Calcium Magnesium 2.1 Total Bilirubin 2.0 H Conjugated Bilirubin 0.2 Unconjugated Bilirubin 0.7 GGT AST 476 H ALT 344 H Alkaline Phosphatase 151 H Total Protein 7.0 Albumin 4.2 Globulin 2.8 Albumin/Globulin Ratio 1.5 Triglycerides Cholesterol LDL Cholesterol, Calc HDL Cholesterol Amylase Acetaminophen < 10 L 03/03/21 03/03/21 03/03/21 19:52 19:52 21:06 WBC RBC Hgb Hct MCV MCH MCHC RDW Plt Count Neut % (Auto) Lymph % (Auto) Wilcox % (Auto) Eos % (Auto) Baso % (Auto) Neut # (Auto) Lymph # (Auto) Wilcox # (Auto) Eos # (Auto) Baso # (Auto) PT INR D-Dimer 450 H Sodium Potassium Chloride Carbon Dioxide BUN Creatinine Estimated GFR BUN/Creatinine Ratio Glucose Lactate Calcium Magnesium Total Bilirubin Conjugated Bilirubin Unconjugated Bilirubin GGT 129 H AST ALT Alkaline Phosphatase Total Protein Albumin Globulin Albumin/Globulin Ratio Triglycerides 105 Cholesterol 198 LDL Cholesterol, Calc 110 H HDL Cholesterol 67 H Amylase 126 H Acetaminophen 03/03/21 03/03/21 03/04/21 23:55 23:55 05:20 WBC 9.8 RBC 4.19 Hgb 12.5 Hct 37.8 MCV 90.1 MCH 29.8 MCHC 33.0 RDW 13.0 Plt Count 266 Neut % (Auto) 56.9 D Lymph % (Auto) 33.0 Wilcox % (Auto) 6.9 Eos % (Auto) 2.4 Baso % (Auto) 0.8 Neut # (Auto) 5600 Lymph # (Auto) 3200 Wilcox # (Auto) 700 Eos # (Auto) 200 Baso # (Auto) 100 PT 11.8 INR 1.1 D-Dimer Sodium Potassium Chloride Carbon Dioxide BUN Creatinine Estimated GFR BUN/Creatinine Ratio Glucose Lactate 1.4 Calcium Magnesium Total Bilirubin Conjugated Bilirubin Unconjugated Bilirubin GGT AST ALT Alkaline Phosphatase Total Protein Albumin Globulin Albumin/Globulin Ratio Triglycerides Cholesterol LDL Cholesterol, Calc HDL Cholesterol Amylase Acetaminophen 03/04/21 03/04/21 03/04/21 05:20 05:20 08:50 WBC RBC Hgb Hct MCV MCH MCHC RDW Plt Count Neut % (Auto) Lymph % (Auto) Wilcox % (Auto) Eos % (Auto) Baso % (Auto) Neut # (Auto) Lymph # (Auto) Wilcox # (Auto) Eos # (Auto) Baso # (Auto) PT 11.1 INR 1.0 D-Dimer Sodium 140 141 Potassium 3.4 3.7 Chloride 108 H 109 H Carbon Dioxide 28 28 BUN 18 H 17 Creatinine 0.72 0.71 Estimated GFR > 60.0 > 60.0 BUN/Creatinine Ratio 25.0 H 23.9 H Glucose 109 H 109 H Lactate Calcium 9.2 9.5 Magnesium Total Bilirubin 0.8 Conjugated Bilirubin Unconjugated Bilirubin GGT AST 199 H ALT 289 H Alkaline Phosphatase 135 H Total Protein 6.4 Albumin 3.7 Globulin 2.7 Albumin/Globulin Ratio 1.4 Triglycerides Cholesterol LDL Cholesterol, Calc HDL Cholesterol Amylase Acetaminophen PFSH Social History household members: significant other Smoking Status: Current every day smoker alcohol intake: current Discharge Plan Discharge Plan Patient Disposition: Home Provider Discharge Comment: Follow up with provider on hepatitis (Hep A, B and C) test results. We also started you on blood pressure lowering medication. Follow up with provider. Quit smoking and work on gradually losing weight to help with BP control. Your CT showed two very small nodules (2 mm, 3 mm) in the right upper lung. You should have repeat noncontrast CT in 12 months to make sure nodules are stable (not growing). Discharge orders & Medications Prescriptions: New losartan 50 mg tablet 50 mg PO DAILY Qty: 30 RF: 0 Continued ibuprofen 200 mg Capsule 800 mg PO Q8H PRN (Reason: Pain (Scale Score 7-10)) RF: 0 Follow up/Referrals: Miscellaneous,Doctor, MD [Primary Care Provider] - Diet/Activity/Treatments Diet: Diet as Tolerated Visit Report/Discharge Packet Instructions: DI for Gallstones, DI for High Blood Pressure Discharge Data Primary Care Provider: Samir,Doctor Attending Provider: Yudith Her
[2021-03-05 10:16] LABS: HBsAg Screen Negative (Negative); Hepatitis A Antibody IgM Negative (Negative); Hepatitis B Core Antibody IgM Negative (Negative); Hepatitis C Antibody <0.1 s/co ratio (0.0-0.9)
--- NOTE | 2021-03-11 13:41 | PC.NURSE ---
Late Entry; Pipercillin infusion initiated 21:47, complete at 23:48. NS infusion initiated 7/2 at 21:43 complete 7/3 at 07:44.
== END 2021-03-04 13:25 | disposition home or self-care (01) ==
LOC: ED 15:14 → AC 20:13
PROVIDERS: Surgery; Admitting Provider Nurse Practitioner Family; Emergency Provider Emergency Medicine; Referring Provider Emergency Medicine; Visit Provider Nurse Practitioner Family
DX: R10.13 Epigastric pain (principal); R74.01 Elevation of levels of liver transaminase levels; D72.829 Elevated white blood cell count, unspecified; F17.210 Nicotine dependence, cigarettes, uncomplicated; R03.0 Elevated blood-pressure reading, without diagnosis of hypertension; Z20.822 Contact with and (suspected) exposure to COVID-19
CPT/HCPCS: 36415; 71275; 74177; 74181; 76700; 80048; 80053; 80061; 80074; 80076; 80329; 81003; 82150; 82550; 82977; 83605; 83690; 83735; 84484; 85025; 85379; 85610; 87635; 93005; 94760; 96361; 96365; 96366; 96372; 96375; 99225; 99284; 99406; C9803; G0378; C9113; G0480; J1650; J1885; J2060; J2405; J2543; Q9967

== ENCOUNTER → 2022-08-23 13:19 | Outpatient (CLI) | payer OTHER, SELFPAY ==
[2021-03-03 21:47] VITALS: BMI 36.8
--- NOTE | 2022-08-23 13:25 | DI.RAD.S_ITS ---
PROCEDURE: XR FOOT RT MIN 3V INDICATIONS: FOOT INJURY TECHNIQUE: 3 views of the foot were acquired. COMPARISON: None. FINDINGS: Bones: No fractures or dislocations. No suspicious bony lesions. Mild 1st diffuse space narrowing periarticular osteophyte formation. Plantar calcaneal enthesophyte. Fixation plate and screws are seen along the distal fibula. Soft tissues: No tibiotalar joint effusion. Achilles tendon appears normal. IMPRESSION: 1. 1st MTP and diffuse interphalangeal joint degeneration. 2. Calcaneal enthesopathy. Dictated by: Johann JACOB Interpreted: Austin Benites MD on 08/23/2022 at 14:11 Transcribed by: ASHELY on 08/23/2022 at 14:13 Approved by: Austin Benites M.D. on 08/23/2022 at 14:41
== END ==
PROVIDERS: Referring Provider Internal Medicine; Visit Provider Internal Medicine
DX: S99.921A Unspecified injury of right foot, initial encounter (principal); M19.071 Primary osteoarthritis, right ankle and foot; M77.31 Calcaneal spur, right foot; X58.XXXA Exposure to other specified factors, initial encounter
CPT/HCPCS: 73630

== ENCOUNTER → 2023-03-31 10:52 | Outpatient (CLI) | payer OTHER, SELFPAY ==
[2021-03-03 21:47] VITALS: BMI 36.8
--- NOTE | 2023-03-31 10:55 | DI.RAD.S_ITS ---
PROCEDURE: XR KNEE RT 3V INDICATIONS: Knee strain TECHNIQUE: 3 views of the knee were acquired. COMPARISON: None. FINDINGS: Bones: No fractures or dislocations. No suspicious bony lesions. Moderate patellofemoral joint space narrowing Soft tissues: Moderate joint effusion. No suspicious soft tissue calcifications. IMPRESSION: Moderate joint effusion. No fracture or dislocation. Approved by: Jono Allen M.D. on 03/31/2023 at 12:08
== END ==
PROVIDERS: Referring Provider Nurse Practitioner Family; Visit Provider Nurse Practitioner Family
DX: S86.911A Strain of unspecified muscle(s) and tendon(s) at lower leg level, right leg, initial encounter (principal); M25.461 Effusion, right knee
CPT/HCPCS: 73562

== ENCOUNTER → 2023-12-19 09:52 | Outpatient (CLI) | payer OTHER, SELFPAY ==
[2021-03-03 21:47] VITALS: BMI 36.8
--- NOTE | 2023-12-19 09:56 | DI.MG.S_ITS ---
BILATERAL DIGITAL SCREENING MAMMOGRAM 3D/2D WITH CAD: 12/19/2023 CLINICAL: Baseline exam. Routine screening. No prior exams were available for comparison. There are scattered areas of fibroglandular density in both breasts (category b / 25%-50% glandular tissue). Current study was also evaluated with a Computer Aided Detection (CAD) system. No significant masses, calcifications, or other findings are seen in either breast. IMPRESSION: NEGATIVE There is no mammographic evidence of malignancy. A 1 year screening mammogram is recommended. Based on the Tyrer Cuzick model (a risk assessment model) the patient's lifetime risk is 7.4% and her 10 year risk is 3.1%. According to the ACR, ACS, and NCCN guidelines, an annual breast MRI exam along with mammogram is recommended if the patient's lifetime risk is 20% or greater. This exam was interpreted at Station ID: [id number]. NOTE: For mammograms, a report in lay terms will be sent to the patient. Approximately 15% of breast malignancies will not be visualized mammographically. In the management of a palpable breast mass, a negative mammogram must not discourage biopsy of a clinically suspicious lesion. Electronically Signed By: Macrina Parson M.D., Ph.D. christine/evangelista:12/19/2023 22:24:06 letter sent: Normal Exam ACR BI-RADS Category 1: Negative [id number]
--- NOTE | 2023-12-19 09:57 | DI.CT.S_ITS ---
PROCEDURE: CT LUNG LOW DOSE SCREENING INDICATIONS: Routine screening TECHNIQUE: Noncontrast 2.0-2.5 mm thick sections acquired from the pulmonary apices to the posterior costophrenic angles. 7 mm thick axial MIP, and 5 mm coronal and sagittal reformats were then acquired. For radiation dose reduction, the following was used: automated exposure control, adjustment of mA and/or kV according to patient size. COMPARISON: None. FINDINGS: Image quality: Diagnostic. Lower Neck: No enlarged lymph nodes. Thyroid: No thyroid nodules which require sonographic follow up, per consensus guidelines. Axillae: No enlarged lymph nodes. Chest Wall: Unremarkable. Bones: Unremarkable. Lungs and Pleura: No pneumothorax or pleural effusions. No consolidation or suspicious nodules. Heart: Heart size is normal. No pericardial effusion. Thoracic Vessels: The aorta and pulmonary arteries demonstrate normal size. Mediastinum and Jonna: No enlarged lymph nodes. Esophagus: No wall thickening. No hiatal hernia. Upper Abdomen: Visualized upper abdomen solid organs and bowel loops appear normal. IMPRESSION: No suspicious pulmonary nodules. LUNG-RADS 1; continued annual screening, if eligible. Clinically Significant Non-pulmonary Findings: None. Dictated by: Jared Mustafa M.D. on 12/19/2023 at 12:44 Approved by: Jared Mustafa M.D. on 12/19/2023 at 12:51
== END ==
PROVIDERS: PCP Physician Assistant; Referring Provider Physician Assistant; Visit Provider Physician Assistant
DX: Z12.31 Encounter for screening mammogram for malignant neoplasm of breast (principal); R92.323 Mammographic fibroglandular density, bilateral breasts; Z12.2 Encounter for screening for malignant neoplasm of respiratory organs; F17.210 Nicotine dependence, cigarettes, uncomplicated
CPT/HCPCS: 71271; 77063; 77067

== ENCOUNTER → 2024-02-03 08:45 | Outpatient (CLI) | payer OTHER, SELFPAY ==
[2021-03-03 21:47] VITALS: BMI 36.8
--- NOTE | 2024-02-03 | DI.US.S_ITS ---
PROCEDURE: US CAROTID DOPPLER BI INDICATIONS: Hyperlipidemia, unspecified TECHNIQUE: Color and pulse Doppler interrogation was performed of both carotid systems, with image documentation and velocity measurements. COMPARISON: None. FINDINGS: Stenosis calculations are based on SRU ([employer] in [employer]) criteria. The flow velocities and the arterial waveforms are normal within both carotid arterial systems. Atherosclerotic plaque is seen on both sides. The estimated degree of internal carotid artery stenosis is less than 50%. Antegrade flow is confirmed within both vertebral arteries. IMPRESSION: No hemodynamically significant stenosis is seen. Atherosclerotic plaque is noted bilaterally. Dictated by: Rakesh Cruz M.D. on 02/03/2024 at 9:40 Approved by: Rakesh Cruz M.D. on 02/03/2024 at 9:40
== END ==
PROVIDERS: PCP Physician Assistant; Referring Provider Physician Assistant; Visit Provider Physician Assistant
DX: I65.23 Occlusion and stenosis of bilateral carotid arteries (principal); E78.5 Hyperlipidemia, unspecified
CPT/HCPCS: 93880